=== PATIENT | female | born 1980 | race Caucasian/White ===

== ENCOUNTER → 2022-06-23 16:06 | Outpatient (BNVA) | payer OTHER, SELFPAY | PROVIDERS: Visit Provider Internal Medicine | DX: S39.012A Strain of muscle, fascia and tendon of lower back, initial encounter (principal); W20.8XXA Other cause of strike by thrown, projected or falling object, initial encounter | CPT/HCPCS: 99202 ==

== ENCOUNTER → 2022-06-25 11:31 | Outpatient (BNVA) | payer OTHER, SELFPAY | PROVIDERS: Visit Provider Internal Medicine | DX: S39.012A Strain of muscle, fascia and tendon of lower back, initial encounter (principal); S16.1XXA Strain of muscle, fascia and tendon at neck level, initial encounter; W20.8XXA Other cause of strike by thrown, projected or falling object, initial encounter | CPT/HCPCS: 99213 ==

== ENCOUNTER → 2022-06-29 09:09 | Outpatient (BNVA) | payer OTHER, SELFPAY | PROVIDERS: Visit Provider Internal Medicine | DX: S39.012A Strain of muscle, fascia and tendon of lower back, initial encounter (principal); S16.1XXA Strain of muscle, fascia and tendon at neck level, initial encounter; W20.8XXA Other cause of strike by thrown, projected or falling object, initial encounter | CPT/HCPCS: 99213 ==

== ENCOUNTER 2023-11-15 07:58 | Outpatient (AMB) | payer OTHER, SELFPAY ==
--- NOTE | 2023-11-15 08:00 | A.OFFVIS_ITS ---
Vital Signs 11/15/23 08:03 Height 5 ft 3 in Weight 150 lb 6 oz BMI 26.6 BP 118/68 Blood Pressure Location Rt brachial Position Sitting Respiration 16 Pulse 76 Pulse Source Pulse Oximeter Pulse Oximetry (%) 100 Oxygen Delivery Method Room Air Intake Visit Reasons: MS ,bouts of brain fog- busy signal Intake Note: Pt presents to the office for new pt evaluation for bouts of brain fog she believes is related to MS. SHe reports she has not seen a neurologist in over 10 years. Plastic Surgery Assistant Required: No Allergies nickel Allergy (Mild, Verified 11/15/23 08:02) Rash Penicillins Allergy (Mild, Verified 11/15/23 08:02) Rash Medication List - Last Reconciled 11/15/23 by Clare Martinez MD hydroxyzine pamoate (Vistaril) 25 mg PO BID PRN sertraline (Zoloft) 100 mg PO DAILY HPI Comments Details: 43y/o Right Handed female with Multiple Sclerosis ( diagnosed in 2004 at [facility]) comes for reestablishing care. In 2004 she had episodes of tingling numbness in hands and legs (R>L) vertigo , falls, poor balance etc. She was seen by PCP - MRI was ordered and was sent to Neurology. she was diagnosed with MS and started on different therapies which included Betaseron etc. she stopped treatment in 2005 - as she was planning . she restarted in 2006 after the baby was born . she stopped in 2009 for her second and did not restart after that. she denies any new severe episodes since her diagnosis . No vision loss, no diplopia, no speech issues, no weakness, no urinary urgency or bowel issues. she denies memory issues. she has some word finding issues she has h/o depression and anxiety - worse when she was in college- was admitted in [facility]. Her mood is stable on medications. [facility] Medical History (Updated 11/15/23 @ 08:33 by Clare Martinez MD) Back pain Multiple sclerosis Anxiety Depression Family History Father No problems noted. Mother HTN (hypertension) Arthritis Social History Household Members: Spouse and Children Housing: House Alcohol intake: current Comment: Seldom Patient Tobacco Use Status: Never used Tobacco Substance Use Type: Marijuana Physical Exam Vital Signs: Last Vital Signs Pulse 76 11/15/23 08:03 Resp 16 11/15/23 08:03 BP 118/68 11/15/23 08:03 Pulse Ox 100 11/15/23 08:03 Oxygen Delivery Method Room Air 11/15/23 08:03 BMI result Body Mass Index 26.6 Const General: cooperative, healthy appearing, comfortable and no acute distress Nutritional Appearance: average body habitus Orientation/consciousness: patient oriented x3 Limitations: no limitations Eyes Pupils: Equal, round and reactive pupils present Neuro General: patient oriented x3, gait normal, tone normal, moves all extremities and no focal motor deficits Cranial nerves: Yes CN's II-XII intact bilaterally, Yes Facial sensation intact/muscles of mastication intact, Yes Equal, round and reactive pupils present, Yes Bilaterally intact EOM present, Yes Nystagmus not present, Yes Nor mal facial strength present, Yes Midline tongue present, Yes Symmetric palate elevation present and Yes Ability to bilaterally elevate shoulders present Cognition (Neuro): normal cognition Gait exam (Neuro): Normal gait present Motor exam (neuro): 5/5 motor strength present throughout and Normal motor muscle tone present throughout Deep tendon reflexes (DTR's): Right triceps reflex intensity grade: 2+, Left triceps reflex intensity grade: 2+, Rt Biceps (C5, C6): 2+, Left biceps reflex intensity grade: 2+, Right brachioradialis reflex intensity grade: 2+, Left brachioradialis reflex intensity grade: 2+, Right patellar reflex intensity grade: 3+ and Left patellar reflex intensity grade: 3+ Coordination: [id number] test normal Psych Appearance: grossly normal Mental Status: mental status grossly normal Speech and movement: Normal speech and movement present Assessment & Plan Assessment & Plan (1) Multiple sclerosis: Code(s): G35 - Multiple sclerosis Category: Medical (2) Back pain: Code(s): M54.9 - Dorsalgia, unspecified Category: Medical Plan She has been stable clincially - i will reevaluate her with MRI brain and LS spine . will consider C spine mRI and LP in future Orders: Orders MR head/brain wo/w con Today G35 - Multiple sclerosis MR lumbar spine wo/w con Today G35 - Multiple sclerosis Coding Level of Care Code New Pt Level 4 (95988) Diagnoses Multiple sclerosis G35 Back pain M54.9
[2023-11-15 08:03] VITALS: BP 118/68; PULSE 76; RESP 16; O2SAT 100; BMI 26.6
== END 2023-11-15 08:38 | disposition home or self-care (01) ==
PROVIDERS: Visit Provider Psychiatry & Neurology Neurology
DX: G35 Multiple sclerosis (principal); M54.9 Dorsalgia, unspecified
CPT/HCPCS: 99204

== ENCOUNTER → 2023-11-15 07:58 | Outpatient (BNVA) | payer OTHER, SELFPAY | PROVIDERS: Visit Provider Psychiatry & Neurology Neurology ==

== ENCOUNTER 2023-12-24 14:59 | Outpatient (REF) | payer OTHER, SELFPAY ==
--- NOTE | ~2023-12-24 | MR_ITS ---
EXAMINATION: MR BRAIN WITHOUT AND WITH CONTRAST CLINICAL INFORMATION: Multiple sclerosis. COMPARISON: No relevant prior imaging. TECHNIQUE: Multiplanar MR imaging of the brain was performed without and with contrast. A total of 6 mL Gadavist was utilized for this examination. FINDINGS: There are numerous foci of T2 FLAIR signal hyperintensity involving the supratentorial and infratentorial white matter with a predilection for the callosal septal interface and juxtacortical white matter consistent with this patient's clinical history of multiple sclerosis. Postcontrast images demonstrate multiple foci of intraparenchymal enhancement consistent with active demyelination. There is no acute ventral infarct. No pathological magnetic susceptibility artifact. Intracranial vascular flow voids are maintained. There is no intracranial mass effect or midline shift. No abnormal extra-axial collection. No hydrocephalus. Midline structures including the cervicomedullary junction are normal. No acute bone marrow signal changes. There is no mastoid or middle ear effusion. No active paranasal sinus disease. Globes and orbits are grossly symmetric. MR/MR head/brain wo/w con IMPRESSION: There are numerous chronic supratentorial and infratentorial white matter lesions consistent with the patient's clinical history of multiple sclerosis. Postcontrast images demonstrate multiple foci of intraparenchymal enhancement consistent with active demyelination. Comparison with recent prior imaging is recommended if available. Electronically signed by: Dami Holman MD 01/23/2024 04:07 PM EDT
[2023-12-24] MEDS: gadobutroL 7.5 ML VIAL IVPUSH (16:27)
== END 2023-12-24 15:00 | disposition home or self-care (01) ==
LOC: HO.MRI 14:59
PROVIDERS: Visit Provider Psychiatry & Neurology Neurology
DX: G35 Multiple sclerosis (principal)
CPT/HCPCS: 70553; A9585

== ENCOUNTER 2024-01-24 09:00 | Outpatient (RCR) | payer OTHER, SELFPAY ==
--- NOTE | 2023-12-29 14:44 | MHC.PT.EP ---
[facility] [place] Office [place] Office [place] Office [address] Alec Onofre [address] [phone] F: [phone] F: [phone] F: [phone] F: [phone] Physical Therapy Plan of Care Date of Evaluation: 12/29/23 Date of Surgery: n/a Diagnosis: dorsalgia, MS Assessment: Patient is a 43 year old presenting to PT with complaints of pain in her low back. Pt reports onset of pain began years ago due to insidious onset. She presents today with impairments in pain, hip strength, core strength, tenderness to palpation. 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 Pt expresses correction goal of reducing pain, and is motivated to work towards this in PT. Clinical presentation today is most consistent with signs and sx associated with low back pain and pt will benefit from skilled PT 2 week x 4 weeks to address the following problems and impairments noted upon evaluation: pain, hip strength, core strength, tenderness to palpation. These problems limit the patient with the following functional activities: ADLs, work, household duties, bending, lifting. The prescribed treatment plan of care is medically necessary. Co-morbidities of MS? were identified and taken into considerations of plan of care. Pt was educated on HEP, role of PT, prognosis, POC. Frequency and Duration: The patient will be seen 2 x week x 4 weeks Short Term Goals: Pt will demonstrate improved hip MMT strength by 1/3 grade in 2 weeks for improved lumbopelvic stability. Pt will demonstrate min to no tenderness to palpation to piriformis in 2 weeks. Pt will demonstrate ability to perform PPT with good core recruitment in 2 weeks. Residential Case Manager Goals: Pt will demonstrate improved Sherry score by 5% in 4 weeks for improved functional mobility. Pt will demonstrate ability to lift with min to no pain in 4 weeks for return to PLOF. Pt will demonstrate improved ability to complete ADLs and manager critical care with min to no pain in 4 weeks for return to PLOF. Treatment Plan: Modalities to reduce pain, spasms and effusion. Manual therapy to restore motion and function. Therapeutic exercise to improve strength and flexibility. Neuromuscular re-education for posture and balance. Therapeutic activities to return to functional activities of daily living. Electronically signed by: Mamie Glass, PT, DPT, ATC Please sign and return to therapist. Thank you for your referral.
--- NOTE | 2024-02-28 07:05 | MHC.PT.DC ---
[facility] [place] Office [place] Office [place] Office [address] Alec Onofre [address] [phone] F: [phone] F: [phone] F: [phone] F: [phone] Physical Therapy Discharge Report Diagnosis: dorsalgia, MS Date of Surgery: n/a Date of Evaluation: 12/29/23 Date of Discharge: 02/28/24 Treatments to Date: 5 Cancellations to Date: 3 No Shows to Date: 0 Discharge Status: Discharge Summary: Pt has not attended skilled PT in >30 days and therefore to be d/c per policy. Electronically signed by: Mamie Glass, PT, DPT, ATC Please sign and return to therapist. Thank you for your referral.
== END 2024-02-28 07:05 | disposition home or self-care (01) ==
LOC: HO.PTCHIC 09:00
PROVIDERS: Visit Provider Nurse Practitioner Family
DX: M54.9 Dorsalgia, unspecified (principal); G35 Multiple sclerosis
CPT/HCPCS: 97110; 97140; 97161